=== PATIENT | female | born 1950 | race Caucasian/White ===

== ENCOUNTER 2024-10-21 09:39 | Observation (INO) ==
[2024-10-21] MEDS: SODIUM CHLORIDE 0.9% 500 ML IV SCH (10:25)
[2024-10-21] MEDS ORDERED: MoRPHine SULFATE 2 MG/ML CARP IV PRN ×2 (10:32→17:20)
--- NOTE | 2024-10-21 10:39 | Emergency Department Note ---
Impression & Plan Hypotension, Anemia, Right leg pain, Ambulatory dysfunction, Acute postoperative pain of right hip ED Provider Note NAME: REJI SPICER AGE: 73 SEX: F : 1950 ARRIVES VIA: Ambulance INFORMANT: [Patient][family] ED PROVIDER(S): [Jensen Sanders MD] CHIEF COMPLAINT: Leg pain HISTORY OF PRESENT ILLNESS: Patient is a 73-year-old female who presents to the ER with right leg pain. She states the pain is primarily in the hip and radiates down to the front of the knee. The patient had right hip surgery for calcific tendinitis 3 days ago at our hospital. The pain is unbearable despite narcotic pain medication at home. She could not get out of bed and had to urinate in her depends. She could not get out of bed even with the assistance of family this morning, EMS was called. There has been no fever, no cough or congestion. No fall. No abdominal pain. PMHx/PSHx/Social Hx: See Below PHYSICAL EXAM: GENERAL: Patient is in no acute distress. HEENT: No acute trauma, normocephalic atraumatic, mucous membranes moist, no nasal congestion. ABDOMEN: Soft, nontender, no peritonitis. EXTREMITIES: No cyanosis. The patient has a bandage across the right lateral hip, no seepage or erythema. She is tender about this area and there is some pain to palpate down along the right anterior thigh. No erythema. There is some mild edema to the right lower extremity. NEUROLOGIC: Oriented x 3, no acute motor or sensory deficits, no focal weakness. SKIN: No jaundice, no diaphoresis. DIFFERENTIAL DIAGNOSIS: Postop pain, hematoma, failed outpatient management, cellulitis, UTI, dehydration, among others. EMERGENCY DEPARTMENT PROCEDURES: MEDICAL DECISION MAKING: There is no leukocytosis. The patient does have a mild anemia with a hemoglobin of 10.6. There is a normal platelet count. No bandemia. No renal failure or significant electrolyte abnormality. No concerning liver enzyme elevation. ECG shows a sinus rhythm, no ischemia or dysrhythmia. Cardiac enzyme testing x 1 is not consistent with acute cardiac injury. Chest x-ray does not show pneumonia or CHF. Right leg ultrasound does not show DVT. On exam, the patient had significant discomfort in the area of the right upper leg especially with any movement. The surgical wound did not show any signs for erythema/infection. The patient received IV saline for hydration. She was given IV Toradol and IV morphine. The patient is not able to tolerate movement, she cannot walk, she cannot get out of bed. She will require a hospital stay, pain control and likely rehab. Of note, patient had presented hypotensive with a systolic pressure in the 90s. She received a small amount of IV fluid and the hypotension now seems to be resolved. The blood pressure can be watched/monitored during this hospital stay. I did speak with orthopedics. I did speak with the patient and family, I spoke with the casework specialist. The on-call hospitalist was consulted. Prior/Outside records/notes reviewed: Operative report from 10/18/2024 describing her procedure and operative findings. ECG per my interpretation: Indication was weakness. The ECG shows a normal sinus rhythm with some sinus arrhythmia. The rate is 83. There is no acute ST elevation, no PVCs. The QTc is 439. Continuous Cardiac Monitoring per my interpretation: An order was placed for continuous cardiac monitoring. The monitor shows a rate of 85 with normal sinus rhythm. Imaging/x-ray results per my interpretation: Chest x-ray does not show pneumonia or CHF. Chronic Medical/Social conditions affecting care: Advanced age, recent right hip operative procedure. Care/Management discussed with: Case management, the on-call hospitalist. Orthopedics-Dr. Elias. Level of care consideration(s): After review of the information above and other included data: --I believe the patient requires escalation of care to admission DISPOSITION: Admission Past Med/Surg History Problem List (Updated 10/21/24 @ 16:40 by Jensen Sanders MD) Acute postoperative pain of right hip (Acute) Ambulatory dysfunction (Acute) Right leg pain (Acute) Anemia (Acute) Hypotension (Acute) Gait difficulty History of operative procedure on hip Calcific tendinitis of hip Effusion, right knee Hypotension Right leg pain Osteoporosis Postmenopausal bleeding Anemia Atherosclerosis of aorta Coronary artery calcification Elevated lipoprotein(a) Rash and nonspecific skin eruption Statin intolerance Obesity (BMI 30-39.9) Vitamin D deficiency Carotid stenosis, bilateral Hypothyroidism Anxiety Hypercholesteremia Hypertension Asthma Medical History Nausea and vomiting after administration of anesthetic agent 2023, with Deborah sx in [place] History of hypothyroidism History of hypertension Hx of hypercholesterolemia History of anxiety History of anemia Hx of osteoporosis History of Mohs micrographic surgery for skin cancer Polymyalgia rheumatica Osteoarthritis Urinary incontinence Hiatal hernia IBS (irritable bowel syndrome) GERD (gastroesophageal reflux disease) hx History of skin cancer hx bcc Sleep apnea CPAP "on occasion" Asthma using PRN inh>rare use of inhaler, "unless she is sick" Surgical History Hx of left cataract extraction History of Deborah fundoplication 2023, [place] History of right cataract surgery 06/02/23 History of open reduction and internal fixation (ORIF) procedure LLE 1994 History of esophagogastroduodenoscopy (EGD) History of colonoscopy Status post surgical removal of neoplasm of skin History of left-sided carotid endarterectomy 2016 S/P tubal ligation 1974 Family History Mother Breast cancer, Onset Age: 70 Diabetes Hypertension Stroke 2003 Father Myocardial infarction 194 Anxiety Hypertension Heart disease Denies family history of Ovarian cancer Prostate cancer Social History Smoking Status: Former smoker Tobacco Type: Cigarettes Age Started Using Tobacco: 13; Age Quit Using Tobacco: 64; packs per day: 1; Second Hand Exposure: No; Do You Dip or Chew Tobacco: No; Hx Alcohol Use: Yes Hx Substance Use: No Preferred Language: Lithuanian Communication Ability: Effective 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 Required: No Beliefs That Will Affect Care: None marital status: Current Living Situation: Alone current occupational status: retired Feels Safe at Home: Yes Childhood Exposure to Second-Hand Smoke: No Dental Care, Regularly: Yes Physical Activity Frequency: Does not Exercise Seatbelt Use: always Sunscreen Use: Yes Assistive Devices: Denture - Upper, Denture - Lower and Glasses Allergies Allergies Allergy/AdvReac Type Severity Reaction Status Date / Time adhesive AdvReac Unknown Rash Verified 10/21/24 11:47 [id number] Reductase AdvReac Unknown elevated Verified 10/21/24 11:47 Inhibitor LFTs Home Meds Home Medications Medication Instructions Recorded Confirmed aspirin 81 mg tablet,delayed 81 mg PO QAM 12/02/21 10/21/24 release (Adult Aspirin Regimen) azelastine 137 mcg (0.1 %) nasal 1 spray intranasal BID PRN 12/02/21 10/21/24 spray Congestion cholecalciferol (vitamin D3) 125 125 mcg PO QAM 12/02/21 10/21/24 mcg (5,000 unit) capsule mecobalamin (vitamin B12) 1,000 1,000 mcg PO QAM 12/02/21 10/21/24 mcg chewable tablet multivitamin (Daily Multi-Vitamin 1 tab PO QAM 12/02/21 10/21/24 tablet) albuterol sulfate 2.5 mg/3 mL 2.5 mg inhalation Q4H PRN sob 05/12/22 10/21/24 (0.083 %) solution for nebulization montelukast 10 mg tablet 10 mg PO QPM 05/12/22 10/21/24 Lactobacillus rhamnosus GG 10 1 cap PO Q2D 10/09/24 10/21/24 billion cell capsule (Culturelle) ascorbic acid (vitamin C) 250 mg 250 mg PO QAM 10/09/24 10/21/24 tablet (Vitamin C) atenolol 25 mg tablet 12.5 mg PO QAM 10/09/24 10/21/24 ferrous sulfate 137 mg (45 mg 137 mg PO DAILY 10/09/24 10/21/24 iron) tablet,extended release (Slow Fe) fluticasone propionate 100 1 inh inhalation QAM 10/09/24 10/21/24 mcg/actuation blister powder for inhalation evolocumab 140 mg/mL subcutaneous 140 mg subcut Q14D 10/21/24 10/21/24 pen injector (Leif Hoover) fluticasone fur. 100 mcg-umeclid 1 inhalation DAILY 10/21/24 62.5 mcg-vilant 25 mcg inhalat.powder (Trelegy Ellipta) fluticasone fur. 100 mcg-umeclid inhalation 10/21/24 62.5 mcg-vilant 25 mcg inhalat.powder (Trelegy Ellipta) fluticasone fur. 100 mcg-umeclid inhalation 10/21/24 62.5 mcg-vilant 25 mcg inhalat.powder (Trelegy Ellipta) oxycodone 5 mg tablet 5 - 10 mg PO DIRECTED PRN pain 10/21/24 10/21/24 Previous Rx's Medication Instructions Recorded clotrimazole 1 % topical cream 1 applic topical BID PRN rash #30 11/11/22 grams ezetimibe 10 mg tablet 10 mg PO QAM #90 tabs 11/24/23 clobetasol 0.05 % topical cream 1 applic topical DAILY PRN lichen 12/16/23 sclerosus #60 grams telmisartan 20 mg tablet 10 mg (1/2 x 20 mg) PO HS #45 tabs 02/23/24 diclofenac sodium 1 % topical gel 2 g topical QID PRN Pain #100 grams 03/31/24 levothyroxine 50 mcg tablet 50 mcg PO QAM #90 tabs 04/27/24 (Euthyrox) citalopram 40 mg tablet 40 mg PO QAM #90 tabs 05/30/24 Results & Data (ED) Vital Signs Vital Signs - 24 hr 10/21/24 09:46 10/21/24 10:08 10/21/24 11:46 Temperature 37.1 C Temperature Source Oral Pulse Rate 88 85 Pulse Rate [Apical] 86 Pulse Rhythm Pulse Rhythm [Apical] Regular Pulse Strength [Apical] Normal Respiratory Rate 16 94 H Respiratory Effort / Characteristics Non-Labored Spontaneous Non-Labored Spontaneous Respiratory Depth Normal Normal Respiratory Pattern Regular Blood Pressure 95/56 L Blood Pressure [Right Arm] 113/65 Blood Pressure Mean 69 Blood Pressure Mean [Right Arm] 81 Blood Pressure Position Sitting Blood Pressure Position [Right Arm] Lying Pulse Oximetry 95 93 Oxygen Delivery Method Room Air Room Air Sepsis Recent Fever Within 48 Hours No Sepsis New/Unexplained Change in Mental Status N/A Sepsis Action Taken by Nursing No Action Required 10/21/24 11:48 10/21/24 13:00 10/21/24 15:09 Temperature Temperature Source Pulse Rate 87 85 Pulse Rate [Apical] 85 Pulse Rhythm Regular Pulse Rhythm [Apical] Regular Pulse Strength [Apical] Normal Respiratory Rate 26 H 21 Respiratory Effort / Characteristics Non-Labored Spontaneous Respiratory Depth Normal Respiratory Pattern Regular Blood Pressure Blood Pressure [Right Arm] 100/63 Blood Pressure Mean Blood Pressure Mean [Right Arm] 75 Blood Pressure Position Blood Pressure Position [Right Arm] Sitting Pulse Oximetry 93 94 Oxygen Delivery Method Room Air Room Air Sepsis Recent Fever Within 48 Hours Sepsis New/Unexplained Change in Mental Status Sepsis Action Taken by Nursing 10/21/24 15:43 Temperature Temperature Source Pulse Rate Pulse Rate [Apical] 91 H Pulse Rhythm Pulse Rhythm [Apical] Regular Pulse Strength [Apical] Normal Respiratory Rate 19 Respiratory Effort / Characteristics Non-Labored Spontaneous Respiratory Depth Normal Respiratory Pattern Regular Blood Pressure Blood Pressure [Right Arm] 124/67 Blood Pressure Mean Blood Pressure Mean [Right Arm] 86 Blood Pressure Position Blood Pressure Position [Right Arm] Lying Pulse Oximetry 96 Oxygen Delivery Method Room Air Sepsis Recent Fever Within 48 Hours Sepsis New/Unexplained Change in Mental Status Sepsis Action Taken by [facility] Medications Current Medication List: was personally reviewed by me Laboratory Data Attestation: I reviewed the patient's lab results. 10/21/24 10:25 10/21/24 10:25 Lab Results 10/21/24 10/21/24 Range/Units 10: 13:08 WBC 9.64 (4.8-10.8) K/ul RBC 3.52 L (4.20-5.40) M/uL Hgb 10.6 L (12.0-16.0) g/dl Hct 32.6 L (37.0-47.0) % MCV 92.6 (80.0-100.0) fL MCH 30.1 (25.0-34.0) pg MCHC 32.5 (32.0-36.0) g/dL RDW Std Deviation 51.8 H (36.4-46.3) fL RDW Coeff of Batsheva 15.5 H (11.5-14.5) % Plt Count 239 (130-400) K/uL MPV 10.5 (9.4-12.4) fL Immature Gran % (Auto) 0.4 % Neut % (Auto) 79.2 % Lymph % (Auto) 9.6 % Bath % (Auto) 9.4 % Eos % (Auto) 1.1 % Baso % (Auto) 0.3 % Neut # (Auto) 7.62 H (1.40-6.50) K/uL Lymph # (Auto) 0.93 L (1.20-3.40) K/uL Bath # (Auto) 0.91 H (0.11-0.59) K/uL Eos # (Auto) 0.11 (0.00-0.50) K/uL Baso # (Auto) 0.03 (0.00-0.20) K/uL Immature Gran # (Auto) 0.04 (0.01-0.20) K/uL Sodium 134 L (136-145) mmol/L Potassium 4.2 (3.5-5.1) mmol/L Chloride 101 (98-107) mmol/L Carbon Dioxide 28 (21-32) mmol/L Anion Gap 5 (3-11) BUN 21 (6-23) mg/dl Creatinine 0.84 (0.6-1.2) mg/dl Est Cr Clr Drug Dosing 68.3 ml/min eGFR 72.87 BUN/Creatinine Ratio 25.0 H (10-20) Glucose 105 H (70-99(Fasting)) mg/dl Calcium 8.5 L (8.6-10.3) mg/dl Magnesium 2.0 (1.7-2.4) mg/dl Total Bilirubin 0.6 (0.2-1.0) mg/dl AST 19 (13-39) U/L ALT 15 (7-52) U/L Alkaline Phosphatase 60 (34-104) U/L Troponin I High Sens 5.3 (0-14) pg/ml Total Protein 6.3 (6.0-8.3) gm/dl Albumin 3.2 L (3.4-5.0) gm/dl Globulin 3.1 (2.5-4.0) gm/dl Albumin/Globulin Ratio 1.0 (0.9-2) Fluid Comment Synovial Source Right Knee Synovial Color Yellow Synovial Appearance Cloudy Synovial WBC (Auto) 54265 H (0-200) /ul Synovial RBC (Auto) < 2000 /uL Synovial Polynuclear % 95.6 % Synovial Mononuclear % 4.4 % Administered Medications Discontinued Medications Sodium Chloride (Nss) 500 mls @ 999 mls/hr IV .Q31M LEO Stop: 10/21/24 10:45 Last Infusion: 10/21/24 11:01 Dose: Infused Documented By: Admin: 10/21/24 10:25 Dose: 999 mls/hr Documented By: JORDANN Ketorolac Tromethamine (Ketorolac Tromethamine 15 Mg/Ml Vial) 15 mg IV NOW STA Stop: 10/21/24 10:33 Last Admin: 10/21/24 10:47 Dose: 15 mg Documented By: MICHELLE Morphine Sulfate (Morphine Sulfate 2 Mg/Ml Carp) 2 mg IV NOW STA Stop: 10/21/24 10:33 Last Admin: 10/21/24 10:47 Dose: 2 mg Documented By: MICHELLE Morphine Sulfate (Morphine Sulfate 2 Mg/Ml Carp) 2 mg IV NOW STA Stop: 10/21/24 14:29 Last Admin: 10/21/24 14:35 Dose: 2 mg Documented By: MPD Imaging Data Radiologist's Impression: Venous Doppler Study 10/21/24 10:39 US venous doppler LE RT HISTORY: 73 years-old Female swelling acute pain and swelling of the lower legs COMPARISON: None TECHNIQUE: Multiple real-time sonographic images of the right lower extremity deep venous structures were obtained assessing grayscale appearance, color and spectral flow. FINDINGS: Normal flow, compressibility, phasicity and augmentation. IMPRESSION: No sonographic evidence of deep venous thrombosis. ACT 112: Negative or not required by law. The above report was generated using voice recognition software. It may contain grammatical, syntax or spelling errors. Electronically signed by: Jeff Kebede M.D. 10/21/2024 11:29 AM Chest X-Ray 10/21/24 14:41 HISTORY: Shortness of breath. TECHNIQUE: Portable AP radiograph of the chest. COMPARISON: None. 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 No focal lung consolidation. No pneumothorax or effusion. Top normal heart size. Left-sided aortic arch contains atherosclerotic calcification. Midline trachea. Degenerative changes of the shoulders and spine. Included upper abdomen is unremarkable. IMPRESSION: No acute cardiopulmonary findings. Electronically signed by Beto Armendariz 10-21-2024 3:03 PM Discharge Plan Visit Data Chief Complaint: Leg Injury/Pain ED Provider: Jensen Sanders Discharge Problem: Hypotension, Anemia, Right leg pain, Ambulatory dysfunction, Acute postoperative pain of right hip Patient Disposition: Admitted As Inpatient Condition: Fair Discharge Instructions Interventions: ED Discharge Assessment Last Done: 10/21/24 15:56 Forms Stand Alone Forms: My CDNlion Prescriptions Prescriptions: No Action ezetimibe 10 mg tablet 10 mg PO QAM Qty: 90 3RF telmisartan 20 mg tablet 10 mg PO HS Qty: 45 3RF Rx Instructions: 1/2 tab orally at bedtime; diclofenac sodium 1 % gel 2 g topical QID PRN (Reason: Pain) Qty: 100 2RF Rx Instructions: apply to hip QID PRN citalopram 40 mg tablet 40 mg PO QAM Qty: 90 3RF clotrimazole 1 % cream 1 applic topical BID PRN (Reason: rash) Qty: 30 0RF clobetasol 0.05 % cream 1 applic topical DAILY PRN (Reason: lichen sclerosus) Qty: 60 3RF multivitamin [Daily Multi-Vitamin] Tablet 1 tab PO QAM aspirin [Adult Aspirin Regimen] 81 mg tablet,delayed release (DR/EC) 81 mg PO QAM cholecalciferol (vitamin D3) 125 mcg (5,000 unit) capsule 125 mcg PO QAM mecobalamin (vitamin B12) 1,000 mcg tablet,chewable 1,000 mcg PO QAM azelastine 137 mcg (0.1 %) aerosol,spray 1 spray intranasal BID PRN (Reason: Congestion) Rx Instructions: administer into each nostril albuterol sulfate 2.5 mg /3 mL (0.083 %) solution for nebulization 2.5 mg inhalation Q4H PRN (Reason: sob) montelukast 10 mg tablet 10 mg PO QPM levothyroxine [Euthyrox] 50 mcg tablet 50 mcg PO QAM Qty: 90 3RF ascorbic acid (vitamin C) [Vitamin C] 250 mg Tablet 250 mg PO QAM Culturelle 10 billion cell Capsule 1 cap PO Q2D Slow Fe 137 mg (45 mg iron) Tablet Extended Release 137 mg PO DAILY atenolol 25 mg tablet 12.5 mg PO QAM fluticasone propionate 100 mcg/actuation blister with device 1 inh inhalation QAM Rx Instructions: Per pt report 06/2024 oxycodone 5 mg tablet 5 - 10 mg PO DIRECTED PRN (Reason: pain) Rx Instructions: take 1-2 tabs every 6-8 hours for pain as needed Repatha SureClick 140 mg/mL pen injector 140 mg subcut Q14D Trelegy Ellipta 100-62.5-25 mcg blister with device 1 INHALATION DAILY Trelegy Ellipta 100-62.5-25 mcg blister with device INHALATION Trelegy Ellipta 100-62.5-25 mcg blister with device INHALATION Referrals Referrals: Phuong Moore MD [Primary Care Provider] - Discharge Problem: Hypotension Qualifiers: Hypotension type: unspecified hypotension type Qualified Code(s): I95.9 - Hypotension, unspecified Anemia Qualifiers: Anemia type: unspecified type Qualified Code(s): D64.9 - Anemia, unspecified
[2024-10-21 10:42] LABS: Basophils # (auto) 0.03 K/uL (0.00-0.20); Basophils % (auto) 0.3 %; Eosinophils # (auto) 0.11 K/uL (0.00-0.50); Eosinophils % (auto) 1.1 %; Hematocrit (blood only) 32.6 % (37.0-47.0); Hemoglobin 10.6 g/dl (12.0-16.0); Immature Granulocytes # (auto) 0.04 K/uL (0.01-0.20); Immature Granulocytes % (auto) 0.4 %; Lymphocytes # (auto) 0.93 K/uL (1.20-3.40); Lymphocytes % (auto) 9.6 %; Mean Corpuscular Hemoglobin 30.1 pg (25.0-34.0); Mean Corpuscular Hgb Conc 32.5 g/dL (32.0-36.0); Mean Corpuscular Volume 92.6 fL (80.0-100.0); Mean Platelet Volume 10.5 fL (9.4-12.4); Monocytes # (auto) 0.91 K/uL (0.11-0.59); Monocytes % (auto) 9.4 %; Neutrophils # (auto) 7.62 K/uL (1.40-6.50); Neutrophils % (auto) 79.2 %; Platelet Count 239 K/uL (130-400); RDW Coefficient of Variation 15.5 % (11.5-14.5); RDW Standard Deviation 51.8 fL (36.4-46.3); Red Blood Count 3.52 M/uL (4.20-5.40); White Blood Count 9.64 K/ul (4.8-10.8)
[2024-10-21] MEDS: KETOROLAC TROMETHAMINE 15 MG/ML VIAL IV STA (10:47)
[2024-10-21] MEDS: MoRPHine SULFATE 2 MG/ML CARP IV STA ×2 (10:47→14:35)
[2024-10-21 11:10] LABS: Bilirubin,Total 0.6 mg/dl (0.2-1.0); Calcium 8.5 mg/dl (8.6-10.3); Creatinine Clr Calc Pharmacy 68.3 ml/min; Globulin 3.1 gm/dl (2.5-4.0); Potassium 4.2 mmol/L (3.5-5.1); Total Protein 6.3 gm/dl (6.0-8.3)
[2024-10-21 11:17] LABS: Troponin I High Sensitivity 5.3 pg/ml (0-14)
--- NOTE | 2024-10-21 11:31 | Ultrasound Report ---
US venous doppler LE RT HISTORY: 73 years-old Female swelling acute pain and swelling of the lower legs COMPARISON: None TECHNIQUE: Multiple real-time sonographic images of the right lower extremity deep venous structures were obtained assessing grayscale appearance, color and spectral flow. FINDINGS: Normal flow, compressibility, phasicity and augmentation. IMPRESSION: No sonographic evidence of deep venous thrombosis. ACT 112: Negative or not required by law. The above report was generated using voice recognition software. It may contain grammatical, syntax o r spelling errors. Electronically signed by: Jeff Kebede M.D. 10/21/2024 11:29 AM
--- NOTE | 2024-10-21 12:58 | History & Physical Report ---
Date of Service October 21, 2024 Assessment & Plan (1) Right leg pain: (2) Anemia: (3) Hypotension: (4) Atherosclerosis of aorta: (5) Hypertension: Plan 73 y/o with bilateral gluteus calcific tendinosis admitted with intractable pain and inability to ambulate following right gluteus minimus tendon repair 10/18 # Acute right knee pain with effusion suspicious for crystalline arthritis, seems unlikely to be septic knee since no fever/leukocytosis or warmth, erythema # postoperative right hip pain # sciatica flare with some component of the pain radiating all the way down to the foot -LE duplex negative for DVT -consulted ortho Dr. Elias - he performed arthrocentesis of the right knee. white blood count is 30,000 which is in the overlap range for crystalline arthritis versus septic arthritis, Gram stain is pending, crystal exam is pending -pain control - scheduled acetaminophen, as needed oxycodone and morphine IV, Toradol judiciously at low-dose to avoid kidney injuryscheduled 15 mg IV x 4 doses -PT/OT - she is supposed to be nonweightbearing on her right leg, clarify how long she is to be nonweightbearing # hypotension - on presentation to the ED mild and resolved with IV fluids, currently normotensive. Hold antihypertensives # postoperative anemia - fairly big drop since 10/16. exam does not seem suspicious for hematoma. recheck CBC - Hg adequate at 10.6. On iron supp outpatient. # Severe Persistent Asthma with ongoing cough purulent sputum since several weeks ago despite a few courses of steroids Z-Rikki and 5 days of doxycycline - obtain chest x-ray - portable film since she cannot stand currently, personally reviewed the film and it is clear without evidence of pneumonia or pulmonary edema - sputum culture - I do not think a procalcitonin will be helpful - may be elevated related to surgery and/or acute arthritis - not currently wheezing, continue formulary substitution for Trelegy and as needed albuterol - appears to be a persistent acute bronchitis or potentially a mild pneumonia, has some sinusitis symptoms - probably benefit from course of a broad spectrum antibiotic like Augmentin, will try to get sputum culture first # HTN - on olmesartan, atenolol - hold since hypotensive in ED # Athrosclerosis and JOSE L stenosis, L CEA - reviewed cardiology note 08/31 - ASA, cholesterol control # HLD - on repatha, zetia # PEGGY - noted, doesn't wear CPAP consistently # hypothyroid - cont levothyroxine, TSH normal this month # mood disorder - continue citalopram # osteoporosis - continue primary care follow up. On Ca/D and reclast # GERD - HH repair 2023 DVT ppx - enoxaparin History of Present Illness Chief Complaint: Right leg pain Primary Care Provider: Phuong Moore MD 73 y/o with calcific tendonitis discharged three days ago after tendon repair right gluteus minimus. She came in by EMS with severe right leg pain. she does have right hip/gluteus pain however that is not the prominent issue, rather, she has severe right knee pain. Pain does radiate from right hip down anterior thigh and all the way down her foote to her toes. She has some pain in her anterior ankle area. Pain is severe and not controlled by her oral pain medication. This morning unable to get OOB because of pain, even with help from family. 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 BP in 90s on arrival - improved after fluids. Anemia noted with adequate hemoglobin She is also been struggling with a cough that has been going on ever since school let out the first week in September. 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 it has been productive of yellow sputum. She has had chills and subjective fevers. She reports that she has had 2 courses of different antibiotics and courses of steroids. She recently saw her pro shop attendant who changed her inhalers to Trelegy. she does have asthma. She is a former smoker and she did recently have a screening chest CT which was negative for signs of malignancy. I reviewed the prescription database and on 10/04 she filled a Z-Rikki and methylprednisolone. on 10/11 she filled a 5-day course of doxycycline and prednisone 40 mg x 5 days. She says that she finished the prednisone 1 week ago Allergies Allergy/AdvReac Type Severity Reaction Status Date / Time adhesive AdvReac Unknown Rash Verified 10/21/24 11:47 [id number] Reductase AdvReac Unknown elevated Verified 10/21/24 11:47 Inhibitor LFTs Home Medications Medication Instructions Recorded Confirmed Type aspirin 81 mg tablet,delayed 81 mg PO QAM 12/02/21 10/21/24 History release (Adult Aspirin Regimen) azelastine 137 mcg (0.1 %) nasal 1 spray intranasal BID PRN 12/02/21 10/21/24 History spray Congestion cholecalciferol (vitamin D3) 125 125 mcg PO QAM 12/02/21 10/21/24 History mcg (5,000 unit) capsule mecobalamin (vitamin B12) 1,000 1,000 mcg PO QAM 12/02/21 10/21/24 History mcg chewable tablet multivitamin (Daily Multi-Vitamin 1 tab PO QAM 12/02/21 10/21/24 History tablet) albuterol sulfate 2.5 mg/3 mL 2.5 mg inhalation Q4H PRN sob 05/12/22 10/21/24 History (0.083 %) solution for nebulization montelukast 10 mg tablet 10 mg PO QPM 05/12/22 10/21/24 History clotrimazole 1 % topical cream 1 applic topical BID PRN rash #30 11/11/22 10/21/24 Rx grams ezetimibe 10 mg tablet 10 mg PO QAM #90 tabs 11/24/23 10/21/24 Rx clobetasol 0.05 % topical cream 1 applic topical DAILY PRN lichen 12/16/23 10/21/24 Rx sclerosus #60 grams telmisartan 20 mg tablet 10 mg (1/2 x 20 mg) PO HS #45 tabs 02/23/24 10/21/24 Rx diclofenac sodium 1 % topical gel 2 g topical QID PRN Pain #100 grams 03/31/24 10/21/24 Rx levothyroxine 50 mcg tablet 50 mcg PO QAM #90 tabs 04/27/24 10/21/24 Rx (Euthyrox) citalopram 40 mg tablet 40 mg PO QAM #90 tabs 05/30/24 10/21/24 Rx Lactobacillus rhamnosus GG 10 1 cap PO Q2D 10/09/24 10/21/24 History billion cell capsule (Culturelle) ascorbic acid (vitamin C) 250 mg 250 mg PO QAM 10/09/24 10/21/24 History tablet (Vitamin C) atenolol 25 mg tablet 12.5 mg PO QAM 10/09/24 10/21/24 History ferrous sulfate 137 mg (45 mg 137 mg PO DAILY 10/09/24 10/21/24 History iron) tablet,extended release (Slow Fe) fluticasone propionate 100 1 inh inhalation QAM 10/09/24 10/21/24 History mcg/actuation blister powder for inhalation evolocumab 140 mg/mL subcutaneous 140 mg subcut Q14D 10/21/24 10/21/24 History pen injector (Repatha SureClick) fluticasone fur. 100 mcg-umeclid 1 inhalation DAILY 10/21/24 History 62.5 mcg-vilant 25 mcg inhalat.powder (Trelegy Ellipta) fluticasone fur. 100 mcg-umeclid inhalation 10/21/24 History 62.5 mcg-vilant 25 mcg inhalat.powder (Trelegy Ellipta) fluticasone fur. 100 mcg-umeclid inhalation 10/21/24 History 62.5 mcg-vilant 25 mcg inhalat.powder (Trelegy Ellipta) oxycodone 5 mg tablet 5 - 10 mg PO DIRECTED PRN pain 10/21/24 10/21/24 History Past Med/Surg History Problem List Gait difficulty History of operative procedure on hip Calcific tendinitis of hip Effusion, right knee Hypotension Right leg pain Osteoporosis Postmenopausal bleeding Anemia Atherosclerosis of aorta Coronary artery calcification Elevated lipoprotein(a) Rash and nonspecific skin eruption Statin intolerance Obesity (BMI 30-39.9) Vitamin D deficiency Carotid stenosis, bilateral Hypothyroidism Anxiety Hypercholesteremia Hypertension Asthma Medical History Nausea and vomiting after administration of anesthetic agent 2023, with Deborah sx in [place] History of hypothyroidism History of hypertension Hx of hypercholesterolemia History of anxiety History of anemia Hx of osteoporosis History of Mohs micrographic surgery for skin cancer Polymyalgia rheumatica Osteoarthritis Urinary incontinence Hiatal hernia IBS (irritable bowel syndrome) GERD (gastroesophageal reflux disease) hx History of skin cancer hx bcc Sleep apnea CPAP "on occasion" Asthma using PRN inh>rare use of inhaler, "unless she is sick" Surgical History Hx of left cataract extraction History of Deborah fundoplication [address] [place] [address] History of right cataract surgery 06/02/23 History of open reduction and internal fixation (ORIF) procedure E 1994 History of esophagogastroduodenoscopy (EGD) History of colonoscopy Status post surgical removal of neoplasm of skin History of left-sided carotid endarterectomy 2017 S/P tubal ligation 1975 Family History Mother Breast cancer, Onset Age: 70 Diabetes Hypertension Stroke 2004 Father Myocardial infarction 1943 Anxiety Hypertension Heart disease Denies family history of Ovarian cancer Prostate cancer Social History Smoking Status: Former smoker Tobacco Type: Cigarettes Age Started Using Tobacco: 13; Age Quit Using Tobacco: 64; packs per day: 1; Second Hand Exposure: No; Do You Dip or Chew Tobacco: No; Hx Alcohol Use: Yes Hx Substance Use: No Preferred Language: Tunisian Communication Ability: Effective Developer Prover Mechanical Required: No Beliefs That Will Affect Care: None marital status: Current Living Situation: Alone current occupational status: retired Feels Safe at Home: Yes Childhood Exposure to Second-Hand Smoke: No Dental Care, Regularly: Yes Physical Activity Frequency: Does not Exercise Seatbelt Use: always Sunscreen Use: Yes Assistive Devices: Denture - Upper, Denture - Lower and Glasses Review of Systems 2 Review of Systems: All systems reviewed & are unremarkable except as noted in HPI & below Physical Exam 2 Physical Exam: Last 24h vitals reviewed GEN: no acute distress, sitting in bed HEENT: pupils equal, sclerae anicteric, moist MM RESP: normal WOB, CTAB Bilaterally except some coarse breath sounds, cough present CV: reg no mrg, no JVD ABD: soft/nt/nd +BT : no maier SKIN: warm and dry, she has a focal rash near the lower part of her blood pressure cuff and also bit on her left arm extremities: Right hip incision is clean dressed no erythema or swelling, no significant ecchymosis. Right knee is tender to palpation and minimal range of motion, not warm and no erythema, knee effusion is present. NEURO: AOx person, place, and situation. Face symmetric, speech normal, moves 4 ext spontaneously and equally. Cannot really move right leg at the hip or the knee hampered by pain she does have some degree of dorsi flexion and plantar flexion intact also hampered by pain Results & Data Results & Data Vital Signs (Past 12 Hours) Vital Signs Temp Pulse Pulse Resp BP BP Pulse Ox 10/21/24 11:48 87 26 H 93 10/21/24 11:46 86 94 H 113/65 93 10/21/24 10:08 85 10/21/24 09:46 37.1 C 88 16 95/56 L 95 O2 Del Method 10/21/24 11:48 Room Air 10/21/24 11:46 Room Air 10/21/24 10:08 10/21/24 09:46 Room Air Laboratory Results 10/21/24 10:25 10/21/24 10:25 last labs 10/16 WBC 15-->9 Hg 12-->10.6 Plt normal Cr at baseline - baseline GFR 65-70 Albumin 3.2 Diagnostic Findings LE duplex negative for DVT MRI Lspine 09/08/24 reviewed DDD and mild-mod facet arthrosis. L4-5 moderate LSS. No high-grade foraminal or central canal stenosis Hip MRI 07/25 reviewed RIGHT 1. Right gluteal tendinosis with insertional edema adjacent to the greater trochanter of the right femur. High-grade partial-thickness tear of the gluteus minimus. Intact insertion of gluteus medius. 2. Mild degenerative changes within the right hip. 3. No fractures. No suspicious marrow replacement. LEFT 1. Left gluteal tendinosis with insertional edema adjacent to the greater trochanter of the left femur. Moderate to high-grade partial-thickness tear of the left gluteus minimus. Intact insertion of the left gluteus medius. 2. Mild degenerative changes within the left hip. 3. No fractures. No suspicious marrow replacement. ECG Additional Comments: Personally reviewed EKG tracing - normal EKG PG Care Time/CCT Total # of Minutes Spent Total Time Spent with Patient: Total time spent is greater than 50% in coordination of care (as documented) at patient's floor/unit and/or counseling patient: Coding Level of Care Code 46740 INT INP/OBS CARE 3/75MIN Diagnoses Right leg pain M79.604 Anemia D64.9 Hypotension I95.9 Atherosclerosis of aorta I70.0 Primary hypertension I10 Hypertension type: primary hypertension (5) Hypertension Hypertension type: primary hypertension Qualified Code(s): I10 - Essential (primary) hypertension
--- NOTE | 2024-10-21 13:16 | Orthopedic Consultation ---
Date of Service October 21, 2024 Assessment & Plan (1) Effusion, right knee: (2) Calcific tendinitis of hip: (3) History of operative procedure on hip: (4) Gait difficulty: Plan 72-year-old female admitted with essentially ambulatory dysfunction following a calcific tendinitis percutaneous procedure of the hip 3 days ago. It appears that most the pain is related to a knee that shows a significant effusion. This may be unrelated to the procedure altogether. Either way, she will need some assistance with activities of daily living and nursing care to help her. - Agree with the ER assessment of need for admission for failure of self-care - Focus on pain management. Opioids okay. No issues with NSAIDs such as Toradol at this point for the tenotomy procedure. - The knee effusion was aspirated: Followed the cell counts and cultures. May benefit from corticosteroid treatment with oral taper. Low concern for infection. Her son-in-law is a publishing editor. - PT/OT evaluations for mobilization and disposition. Weightbearing and range of motion as tolerated. - Will continue to follow her progress. History of Present Illness Reason for Consultation: Right hip and knee pain Requesting Physician: . 73-year-old female was treated by Dr. Diony Brito for right hip calcific tendinitis with a percutaneous tenotomy type procedure presents with increasing pain in the extremity but more focused at the knee versus the hip. Since the procedure she has had a lot of pain that she managed with opioid at home. She has been difficult to mobilize over the last 2 days. Her family called and ambulance as she cannot get out of bed. Her son-in-law is a local publishing editor and provided additional history. She had at the inflammatory ankle condition that self resolved a while ago. No known history of crystalline arthropathy. Knee has been swollen and painful for the past day or so. Pes been increasingly painful and she has had difficulty with ambulation because of mostly the knee pain. The hip discomfort has gotten better since the procedure. Allergies Allergy/AdvReac Type Severity Reaction Status Date / Time adhesive AdvReac Unknown Rash Verified 10/21/24 11:47 [id number] Reductase AdvReac Unknown elevated Verified 10/21/24 11:47 Inhibitor LFTs Home Medications Medication Instructions Recorded Confirmed Type aspirin 81 mg tablet,delayed 81 mg PO QAM 12/02/21 10/21/24 History release (Adult Aspirin Regimen) azelastine 137 mcg (0.1 %) nasal 1 spray intranasal BID PRN 12/02/21 10/21/24 History spray Congestion cholecalciferol (vitamin D3) 125 125 mcg PO QAM 12/02/21 10/21/24 History mcg (5,000 unit) capsule mecobalamin (vitamin B12) 1,000 1,000 mcg PO QAM 12/02/21 10/21/24 History mcg chewable tablet multivitamin (Daily Multi-Vitamin 1 tab PO QAM 12/02/21 10/21/24 History tablet) albuterol sulfate 2.5 mg/3 mL 2.5 mg inhalation Q4H PRN sob 05/12/22 10/21/24 History (0.083 %) solution for nebulization montelukast 10 mg tablet 10 mg PO QPM 05/12/22 10/21/24 History clotrimazole 1 % topical cream 1 applic topical BID PRN rash #30 11/11/22 10/21/24 Rx grams ezetimibe 10 mg tablet 10 mg PO QAM #90 tabs 11/24/23 10/21/24 Rx clobetasol 0.05 % topical cream 1 applic topical DAILY PRN lichen 12/16/23 10/21/24 Rx sclerosus #60 grams telmisartan 20 mg tablet 10 mg (1/2 x 20 mg) PO HS #45 tabs 02/23/24 10/21/24 Rx diclofenac sodium 1 % topical gel 2 g topical QID PRN Pain #100 grams 03/31/24 10/21/24 Rx levothyroxine 50 mcg tablet 50 mcg PO QAM #90 tabs 04/27/24 10/21/24 Rx (Euthyrox) citalopram 40 mg tablet 40 mg PO QAM #90 tabs 05/30/24 10/21/24 Rx Lactobacillus rhamnosus GG 10 1 cap PO Q2D 10/09/24 10/21/24 History billion cell capsule (Culturelle) ascorbic acid (vitamin C) 250 mg 250 mg PO QAM 10/09/24 10/21/24 History tablet (Vitamin C) atenolol 25 mg tablet 12.5 mg PO QAM 10/09/24 10/21/24 History ferrous sulfate 137 mg (45 mg 137 mg PO DAILY 10/09/24 10/21/24 History iron) tablet,extended release (Slow Fe) fluticasone propionate 100 1 inh inhalation QAM 10/09/24 10/21/24 History mcg/actuation blister powder for inhalation evolocumab 140 mg/mL subcutaneous 140 mg subcut Q14D 10/21/24 10/21/24 History pen injector (Leif Hoover) oxycodone 5 mg tablet 5 - 10 mg PO DIRECTED PRN pain 10/21/24 10/21/24 History Past Med/Surg History Problem List (Updated 10/21/24 @ 13:19 by Brannon Elias MD) Gait difficulty History of operative procedure on hip Calcific tendinitis of hip Effusion, right knee Hypotension Right leg pain Osteoporosis Postmenopausal bleeding Anemia Atherosclerosis of aorta Coronary artery calcification Elevated lipoprotein(a) Rash and nonspecific skin eruption Statin intolerance Obesity (BMI 30-39.9) Vitamin D deficiency Carotid stenosis, bilateral Hypothyroidism Anxiety Hypercholesteremia Hypertension Asthma Medical History Nausea and vomiting after administration of anesthetic agent 2023, with Deborah sx in [place] History of hypothyroidism History of hypertension Hx of hypercholesterolemia History of anxiety History of anemia Hx of osteoporosis History of Mohs micrographic surgery for skin cancer Polymyalgia rheumatica Osteoarthritis Urinary incontinence Hiatal hernia IBS (irritable bowel syndrome) GERD (gastroesophageal reflux disease) hx History of skin cancer hx bcc Sleep apnea CPAP "on occasion" Asthma using PRN inh>rare use of inhaler, "unless she is sick" Surgical History Hx of left cataract extraction History of Deborah fundoplication 2023, [place] History of right cataract surgery 06/02/23 History of open reduction and internal fixation (ORIF) procedure [place] 1994 History of esophagogastroduodenoscopy (EGD) History of colonoscopy Status post surgical removal of neoplasm of skin History of left-sided carotid endarterectomy 2016 S/P tubal ligation 1974 Family History Mother Breast cancer, Onset Age: 70 Diabetes Hypertension Stroke 2004 Father Myocardial infarction 194 Anxiety Hypertension Heart disease Denies family history of Ovarian cancer Prostate cancer Social History Smoking Status: Former smoker Tobacco Type: Cigarettes Age Started Using Tobacco: 13; Age Quit Using Tobacco: 64; packs per day: 1; Second Hand Exposure: No; Do You Dip or Chew Tobacco: No; Hx Alcohol Use: Yes Hx Substance Use: No Preferred Language: Djiboutian Communication Ability: Effective Carrier Packer Required: No Beliefs That Will Affect Care: None marital status: Current Living Situation: Alone current occupational status: retired Feels Safe at Home: Yes Childhood Exposure to Second-Hand Smoke: No Dental Care, Regularly: Yes Physical Activity Frequency: Does not Exercise Seatbelt Use: always Sunscreen Use: Yes Assistive Devices: Denture - Upper, Denture - Lower and Glasses Review of Systems All systems reviewed & are unremarkable except as noted in HPI & below. Physical Exam Right hip: The percutaneous tenotomy site is without erythema or drainage. No guarding or significant tenderness with palpation. No issues with logroll or activating the quad. Right knee: The right knee is irritable and has an obvious effusion. No erythema or significant warmth. Can actively extend gently but prefers to be slightly flexed. DNVI Constitutional WD/WN, vitals as above no acute distress and not intoxicated appearing Respiratory normal respiratory effort; no labored breathing Cardiovascular Extremities: normal capillary refill Results & Data Results & Data Laboratory Results H & H 10/21/24 Range/Units 10:25 Hgb 10.6 L (12.0-16.0) g/dl Hct 32.6 L (37.0-47.0) % Laboratory Tests 10/16/24 10/16/24 10/16/24 08:46 08:46 08:46 WBC 15.35 H Neut % (Auto) 63.7 Neut # (Auto) 9.77 H Creatinine Albumin 10/21/24 10/21/24 10/21/24 10:25 10:25 10:25 WBC 9.64 Neut % (Auto) 79.2 Neut # (Auto) 7.62 H Creatinine 0.84 Albumin 3.2 L Diagnostic Findings Venous Doppler shows no evidence of VTE PG Care Time/CCT Total # of Minutes Spent Total Time Spent with Patient: Total time spent is greater than 50% in coordination of care (as documented) at patient's floor/unit and/or counseling patient: Coding Level of Care Code 90349 IN/OBS CONSULT LVL 4,60M Diagnoses Effusion, right knee M25.461 Calcific tendinitis of hip M65.259 History of operative procedure on hip Z98.890 Gait difficulty R26.9
[2024-10-21 13:49] LABS: Appearance Synovial Fluid Cloudy; Color Synovial Fluid Yellow; Mononuclear WBC Synovial 4.4 %; Polynuclear WBC Synovial 95.6 %; RBC Synovial Fluid Auto < 2000 /uL; Source Synovial Fluid Right Knee
--- NOTE | 2024-10-21 15:03 | XRay Report ---
HISTORY: Shortness of breath. TECHNIQUE: Portable AP radiograph of the chest. COMPARISON: None. FINDINGS: personnel monitor leads overlie the chest. No focal lung consolidation. No pneumothorax or effusion. Top normal heart size. Left-sided aortic arch contains atherosclerotic calcification. Midline trachea. Degenerative changes of the shoulders and spine. Included upper abdomen is unremarkable. IMPRESSION: No acute cardiopulmonary findings. Electronically signed by Beto Armendariz 10-21-2024 3:03 PM
[2024-10-21 16:47] LABS: Uric Acid 5.6 mg/dl (2.6-7.2)
[2024-10-21] MEDS ORDERED: CLOBETASOL PROPIONATE 0.05% CREAM 15 GM TUBE TOP PRN (17:20)
[2024-10-21] MEDS ORDERED: DICLOFENAC SOD 1% GEL 100 GM TUBE EXT PRN (17:20)
[2024-10-21] MEDS ORDERED: ALBUTEROL 0.083% NEBU SOLN 3 ML VIAL INH PRN (17:20)
[2024-10-21] MEDS ORDERED: AZELASTINE HCL 0.1% NASAL 200 SPRAYS/27,400 MCG BTL NAE PRN (17:20)
[2024-10-21] MEDS ORDERED: MAGNESIUM HYDROXIDE SUSP 30 ML UDC PO PRN (17:20)
[2024-10-21] MEDS ORDERED: oxyCODONE HCL IR 5 MG TAB (IMMEDIATE RELEASE) PO PRN ×2 (17:20)
[2024-10-21] MEDS ORDERED: ONDANSETRON INJ 2 MG/ML 2 ML VIAL IV PRN (17:20)
[2024-10-21] MEDS ORDERED: MELATONIN 3 MG TAB PO PRN (17:20)
[2024-10-21] MEDS ORDERED: ALUMINUM/MAGNESIUM SUSP 30 ML UDC PO PRN (17:20)
[2024-10-21] MEDS ORDERED: bisacodyL 10 MG SUPP PR PRN (17:20)
[2024-10-21] MEDS ORDERED: bisacodyL 5 MG TABEC PO PRN (17:20)
[2024-10-21] MEDS ORDERED: KETOROLAC TROMETHAMINE 15 MG/ML VIAL IV PRN (17:20)
[2024-10-21] MEDS ORDERED: CLOTRIMAZOLE 1% CR 15 GM TUBE TOP PRN (17:20)
[2024-10-21] MEDS: AMOXICILLIN/CLAVULANATE 875 MG TAB PO SCH (18:36)
[2024-10-21] MEDS: ACETAMINOPHEN 325 MG TAB PO SCH (18:37)
--- NOTE | 2024-10-21 18:45 | Electrocardiogram Report ---
Test Reason : Blood Pressure : */* mmHG Vent. Rate : 83 BPM Atrial Rate : 83 BPM P-R Int : 164 ms QRS Dur : 70 ms QT Int : 374 ms P-R-T Axes : 61 15 16 degrees QTcB Int : 439 ms Normal sinus rhythm with sinus arrhythmia Normal ECG No previous ECGs available Confirmed by Saagr Oconnor ([id number]) on 10/21/2024 6:45:03 PM Referred By: REFERRED SELF Confirmed By: Sagar Oconnor
[2024-10-21] MEDS: MONTELUKAST SODIUM 10 MG TABLET PO SCH (20:22)
[2024-10-21] MEDS: HEPARIN SOD 5,000 UNIT/0.5 ML VIAL SQ SCH (20:25)
[2024-10-21] MEDS: SENNA 8.6 MG TAB PO SCH (20:25)
[2024-10-22] MEDS: LEVOTHYROXINE SODIUM 50 MCG TABLET PO SCH (05:29)
[2024-10-22 07:49] LABS: Hemoglobin 10.4 g/dl (12.0-16.0); Mean Corpuscular Hemoglobin 30.9 pg (25.0-34.0); Mean Corpuscular Hgb Conc 33.5 g/dL (32.0-36.0); Mean Platelet Volume 10.4 fL (9.4-12.4); Platelet Count 228 K/uL (130-400); RDW Coefficient of Variation 15.2 % (11.5-14.5); RDW Standard Deviation 51.5 fL (36.4-46.3); Red Blood Count 3.37 M/uL (4.20-5.40); White Blood Count 6.33 K/ul (4.8-10.8)
[2024-10-22] MEDS: UMECLIDINIUM/VILANTEROL 62.5/25MCG 7 PUFFS/INHALER INH SCH (09:09)
[2024-10-22] MEDS: FLUTICASONE FUROATE 100MCG 14 PUFFS/INHALER INH SCH (09:09)
[2024-10-22] MEDS: ASPIRIN 81 MG ECTAB PO SCH (09:10)
[2024-10-22] MEDS: CYANOCOBALAMIN (B-12) 500 MCG TABLET PO SCH (09:10)
[2024-10-22] MEDS: EZETIMIBE 10 MG TAB PO SCH (09:11)
[2024-10-22] MEDS: CITALOPRAM 40 MG TAB PO SCH (09:11)
[2024-10-22] MEDS: POLYETHYLENE (MIRALAX) 17 GM PACK PO SCH (09:22)
--- NOTE | 2024-10-22 14:28 | Orthopedic Progress Note ---
Date of Service October 22, 2024 Assessment & Plan (1) Ambulatory dysfunction: (2) Effusion, right knee: (3) Calcific tendinitis of hip: (4) History of operative procedure on hip: (5) Gait difficulty: Plan Continue to follow culture results and synovial fluid analysis. Currently, no growth is seen on culture. Crystal analysis is pending. Again, the patient may benefit from oral corticosteroid taper. Patient remains a low concern for infection. - Continue PT/OT for mobilization. Currently, patient may be either returning to her home or her daughter's home, but may also be a candidate for an inpatient rehab facility. - Weightbearing and range of motion as tolerated. - Will continue to follow her progress. Subjective Patient is HD# 2 since undergoing a right knee aspiration yesterday by Dr. Elias, which did demonstrate an opaque/cloudy yellow fluid. It ended up showing approximately 32,000 WBCs. Crystal analysis is still pending. Patient says her pain is much better today, and she is able to flex and extend the knee and ankle, whereas she was unable to do this yesterday secondary to severe pain. Review of Systems All systems reviewed & are unremarkable except as noted in HPI & below. Physical Exam GENERAL: AA&Ox3, NAD. Pleasant, affect is calm. Sitting in bedside chair and appears comfortable. RESPIRATORY: Normal respiratory effort with no signs of distress. CHEST/AXILLA: Chest movement symmetrical. No deformities noted. CARDIOVASCULAR: No edema noted. SKIN: [place], warm and dry. MS/EXTREMITY: Right knee is without any significant effusion today. No erythema or abnormal warmth. + Knee flexion/extension. + ankle dorsi/plantarflexion. NVI distally. Calf soft/NT. PT/DP pulses intact, 2+. Results & Data Results & Data Laboratory Results Laboratory Results - last 48 hr 10/21/24 10/21/24 10/22/24 10:25 13:08 07:32 WBC 9.64 6.33 RBC 3.52 L 3.37 L Hgb 10.6 L 10.4 L Hct 32.6 L 31.0 L MCV 92.6 92.0 MCH 30.1 30.9 MCHC 32.5 33.5 RDW Std Deviation 51.8 H 51.5 H RDW Coeff of Batsheva 15.5 H 15.2 H Plt Count 239 228 MPV 10.5 10.4 Immature Gran % (Auto) 0.4 Neut % (Auto) 79.2 Lymph % (Auto) 9.6 Johnson % (Auto) 9.4 Eos % (Auto) 1.1 Baso % (Auto) 0.3 Neut # (Auto) 7.62 H Lymph # (Auto) 0.93 L Johnson # (Auto) 0.91 H Eos # (Auto) 0.11 Baso # (Auto) 0.03 Immature Gran # (Auto) 0.04 Sodium 134 L Potassium 4.2 Chloride 101 Carbon Dioxide 28 Anion Gap 5 BUN 21 Creatinine 0.84 Est Cr Clr Drug Dosing 68.3 eGFR 72.87 BUN/Creatinine Ratio 25.0 H Glucose 105 H Uric Acid 5.6 Calcium 8.5 L Magnesium 2.0 Total Bilirubin 0.6 AST 19 ALT 15 Alkaline Phosphatase 60 Troponin I High Sens 5.3 Total Protein 6.3 Albumin 3.2 L Globulin 3.1 Albumin/Globulin Ratio 1.0 Fluid Comment Synovial Source Right Knee Synovial Color Yellow Synovial Appearance Cloudy Synovial WBC (Auto) 41822 H Synovial RBC (Auto) < 2000 Synovial Polynuclear % 95.6 Synovial Mononuclear % 4.4 Synovial crystalspending Diagnostic Findings . PG Care Time/CCT Total # of Minutes Spent Total Time Spent with Patient: Total time spent is greater than 50% in coordination of care (as documented) at patient's floor/unit and/or counseling patient: Coding [place] [address] Post Operative Follow-Up Patient Type Established History Problem Focused Exam Problem Focused Medical Decision Making Straight Forward Diagnoses Ambulatory dysfunction R26.2 Effusion, right knee M25.461 Calcific tendinitis of hip M65.259 History of operative procedure on hip Z98.890 Gait difficulty R26.9
[2024-10-22] MEDS: COLCHICINE 0.6 MG TAB PO ONE ×2 (16:40→17:56)
[2024-10-22] MEDS: CEFEPIME 2000MG 2,000 MG/20 ML SYR IV SCH (17:36)
--- NOTE | 2024-10-22 18:03 | Hospitalist Progress Note ---
Date of Service October 22, 2024 Assessment & Plan (1) Right leg pain: (2) Anemia: (3) Hypotension: (4) Atherosclerosis of aorta: (5) Hypertension: Plan 73 y/o with bilateral gluteus calcific tendinosis admitted with intractable pain and inability to ambulate following right gluteus minimus tendon repair 10/18 # Acute right knee pain with effusion suspicious for crystalline arthritis, seems unlikely to be septic knee since no fever/leukocytosis or warmth, erythema # postoperative right hip pain # sciatica flare with some component of the pain radiating all the way down to the foot -LE duplex negative for DVT -consulted ortho Dr. Elias - he performed arthrocentesis of the right knee. white blood count is 30,000 which is in the overlap range for crystalline arthritis versus septic arthritis, Gram stain is neg, crystal exam is pending -pain control - scheduled acetaminophen, as needed oxycodone, lost IV and doesn't want another one -colchicine 1.2 mg x 1 and 0.6 mg an hour later for probably crystalline arthritis. Would like to avoid a third course of systemic steroids within less than a month if possible. Joint injection would be helpful -PT/OT - she is supposed to be nonweightbearing on her right leg, clarify how long she is to be nonweightbearing # hypotension - on presentation to the ED mild and resolved with IV fluids, remains normotensive. Hold antihypertensives # postoperative anemia - fairly big drop since 10/16. exam does not seem suspicious for hematoma. recheck CBC - Hg unchanged today - Hg adequate at 10.4. On iron supp outpatient. # Severe Persistent Asthma with ongoing cough purulent sputum since several weeks ago despite a few courses of steroids Z-Rikki and 5 days of doxycycline # pseudomonas pneumonia, mild but persistent for weeks, versus acute bronchitis - chest x-ray - clear - sputum culture - Pseudomonas aureginosa - stop augmentin and start cefepime, hope to change to cipro once sensis available - not currently wheezing, continue formulary substitution for Trelegy and as needed albuterol # HTN - on olmesartan, atenolol - held since hypotensive in ED # Athrosclerosis and JOSE L stenosis, L CEA - reviewed cardiology note 08/31 - ASA, cholesterol control # HLD - on repatha, zetia # PEGGY - noted, doesn't wear CPAP consistently # hypothyroid - cont levothyroxine, TSH normal this month # mood disorder - continue citalopram # osteoporosis - continue primary care follow up. On Ca/D and reclast # GERD - HH repair 2023 DVT ppx - enoxaparin Admission and Anticipated Discharge Date Admission Date: October 21, 2024 Subjective R knee pain down from 20/10 to an 8/10 today Cough persists, not hypoxic no fever Able to stand and transfer to chair Physical Exam 2 Physical Exam: Last 24h vitals reviewed GEN: up in chair HEENT: pupils equal, sclerae anicteric, moist MM RESP: normal WOB, cough CV: ABD: ND : no maier SKIN: warm and dry, no rash EXT: R knee with effuison, no warmth or erythema NEURO: AOx person, place, and situation. Results & Data Results & Data Vital Signs (Past 12 Hours) Vital Signs Temp Pulse Resp BP Pulse Ox O2 Del Method 10/22/24 13:39 36.9 C 84 16 115/69 97 Room Air 10/22/24 07:40 Room Air 10/22/24 07:27 36.6 C 75 16 144/83 H 99 Room Air Laboratory Results 10/22/24 07:32 10/21/24 10:25 PG Care Time/CCT Total # of Minutes Spent Total Time Spent with Patient: Total time spent is greater than 50% in coordination of care (as documented) at patient's floor/unit and/or counseling patient: Coding Level of Care Code 21968 SUB INP/OBS CARE 2/35MIN Diagnoses Right leg pain M79.604 Anemia D64.9 Hypotension I95.9 Atherosclerosis of aorta I70.0 Primary hypertension I10 Hypertension type: primary hypertension (5) Hypertension Hypertension type: primary hypertension Qualified Code(s): I10 - Essential (primary) hypertension
[2024-10-23 06:46] LABS: Hematocrit (blood only) 31.9 % (37.0-47.0); Hemoglobin 10.8 g/dl (12.0-16.0); Mean Corpuscular Hemoglobin 30.5 pg (25.0-34.0); Mean Corpuscular Hgb Conc 33.9 g/dL (32.0-36.0); Mean Corpuscular Volume 90.1 fL (80.0-100.0); Mean Platelet Volume 10.4 fL (9.4-12.4); Platelet Count 269 K/uL (130-400); RDW Coefficient of Variation 14.6 % (11.5-14.5); RDW Standard Deviation 47.8 fL (36.4-46.3); Red Blood Count 3.54 M/uL (4.20-5.40); White Blood Count 5.64 K/ul (4.8-10.8)
[2024-10-23 07:00] VITALS: BP 132/76; PULSE 93; RESP 16; TEMP 98.8; O2SAT 98
[2024-10-23 07:11] LABS: BUN Creatinine Ratio 17.1 (10-20); Calcium 8.5 mg/dl (8.6-10.3)
--- NOTE | 2024-10-23 09:40 | Orthopedic Progress Note ---
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 * Culture/GS negative, Crystal analysis (+) CPPD crystals * Recommend medical management of pseudogout. Consider ice, NSAIDs/Colchicine as able, steroid taper. * Disposition: TBD * Daily treatment: Physical Therapy/ Occupational Therapy per protocol * Weight bearing status: WBAT * Pain control * DVT prophylaxis per primary team * Remainder care per primary team * Will follow peripherally, recommend outpt follow-up as needed. Subjective .Active Problems: Right knee pain/effusion, s/p aspiration 10/21 73 y/o female s/p R knee aspiration. Synovial analysis WBC 32k, gram stain (-), culture (-), (+) CPPD crystals. Knee pain continues to improve but is still moderately painful with motion. Colchicine initiated yesterday. Improved function, can now flex knee past 90 degrees. Denies fever/chills, chest pain/SOB, nausea/vomiting. Otherwise no complaints. Review of Systems All systems reviewed & are unremarkable except as noted in HPI & below. Physical Exam . * General: Alert and oriented, no acute distress * Constitutional: well-developed, well-nourished. * Respiratory: Normal respiratory effort, no distress * Gastrointestinal: No tenderness to palpation, no rigidity or guarding. * Skin: No rash or lesion. * Neurologic: Grossly normal * Musculoskeletal: R knee with mild effusion. Otherwise no overlying erythema, open wounds. Mild TTP medial/lateral joint line. Otherwise no tenderness distal thigh, lower leg, foot/ankle. AROM knee flexion 0-100 degrees with minimal end range pain. AROM foot/ankle intact. Sensation intact plantar/dorsal foot. Brisk capillary refill. Results & Data Results & Data Laboratory Results . 10/21/24 16:00 Gram Stain - Final Sputum, Expectorated Sputum Culture - Final Pseudomonas aeruginosa 10/21/24 13:08 Gram Stain - Final Knee,Right Aerobic and Anaerobic Culture - Preliminary No growth to date. 10/23/24 06:13 WBC 5.64 RBC 3.54 L Hgb 10.8 L Hct 31.9 L MCV 90.1 MCH 30.5 MCHC 33.9 RDW Std Deviation 47.8 H RDW Coeff of Batsheva 14.6 H Plt Count 269 MPV 10.4 Sodium 139 Potassium 4.0 Chloride 107 Carbon Dioxide 28 Anion Gap 4 BUN 12 Creatinine 0.70 Est Cr Clr Drug Dosing 82.0 eGFR 90.70 BUN/Creatinine Ratio 17.1 Glucose 103 H Calcium 8.5 L Diagnostic Findings . PG Care Time/CCT Total # of Minutes Spent Total Time Spent with Patient: Total time spent is greater than 50% in coordination of care (as documented) at patient's floor/unit and/or counseling patient: Coding Level of Care Code 72634 SUB INP/OBS CARE 05/20MIN Diagnoses Effusion, right knee M25.461
[2024-10-23] MEDS: ONDANSETRON 4 MG OD TAB PO PRN (10:54)
[2024-10-23] MEDS ORDERED: NAPROXEN 250 MG TAB PO PRN (12:22)
--- NOTE | 2024-10-23 12:37 | Discharge Summary ---
Discharge Summary Date of Service October 23, 2024 Principal Dx & Hospital Course #1 = Principal Diagnosis (1) Pseudogout of knee: (2) Acute postoperative pain of right hip: (3) Anemia: (4) Hypotension: (5) Atherosclerosis of aorta: (6) Hypertension: Plan 73 y/o with bilateral gluteus calcific tendinosis admitted with intractable right leg pain and inability to ambulate following right gluteus minimus tendon repair 10/18. The main painful area was actually her right knee, not the hip/gluteal repair and she had right knee effusion. Knee was tapped and positive for CPPD. Treated as below and improved. # acute pseudogout of right knee # postoperative right hip pain -LE duplex negative for DVT -consulted ortho Dr. Elias - he performed arthrocentesis of the right knee. white blood count is 30,000, Gram stain is neg, joint culture negative, crystal exam resulted after discharge - positive for CPPD crystals. Serum uric acid was low. Has prior history of R ankle acute inflammatory arthritis that resolved with prednisone. -pain control - scheduled acetaminophen, as needed oxycodone -treated with nsaids, colchicine 1.2 mg x 1 and 0.6 mg given 10/22 with im provement. Continuing colchicine 0.6 mg bid and PRN naproxen (caution with renal function) at this time. If ineffective can use prednisone. Would like to avoid a third course of systemic steroids within less than a month if possible. Joint injection would be helpful, but ortho renewable energy consultant did not offer this -PT/OT - clarified with Dr. Dominguez who did gluteus tendon surgery - at this time partial weightbearing on right LE. # postoperative anemia - fairly big drop since 10/16. exam does not seem suspicious for hematoma. recheck CBC - Hg unchanged today - Hg adequate at 10.8 On iron supp outpatient q2d, follow up in primary care # Severe Persistent Asthma with ongoing cough purulent sputum since several weeks ago despite a few courses of steroids Z-Rikki and 5 days of doxycycline # pseudomonas pneumonia, mild but persistent for weeks, versus pseudomonas tracheobronchitis # left sided acute sinusitis # left ear serous effusion - no evidence of infection on otoscopic exam today - chest x-ray - clear - sputum culture - Pseudomonas aureginosa - cefepime in hospital changed to oral cipro for 10 day course - afrin bid x 72h for acute sinusitis - would be a good idea to add nasal flonase - I forgot to put this on the discharge meds prior to her leaving - not currently wheezing, continue formulary substitution for Trelegy and as needed albuterol Chronic issues: # HTN - on olmesartan, atenolol - held since hypotensive in ED which rapidly resolved with IV fluids, resumed by discharge # Athrosclerosis and JOSE L stenosis, L CEA - reviewed cardiology note 08/31 - ASA, cholesterol control # HLD - on repatha, zetia. intolerant of statin # PEGGY - noted, doesn't wear CPAP consistently # hypothyroid - cont levothyroxine, TSH normal this month # mood disorder - continue citalopram # osteoporosis - continue primary care follow up. On Ca/D and reclast # GERD - HH repair 2023 I updated her son-in-law Dr. Elias today. Admission HPI Per Admitting Provider 73 y/o with calcific tendonitis discharged three days ago after tendon repair right gluteus minimus. She came in by EMS with severe right leg pain. she does have right hip/gluteus pain however that is not the prominent issue, rather, she has severe right knee pain. Pain does radiate from right hip down anterior thigh and all the way down her foote to her toes. She has some pain in her anterior ankle area. Pain is severe and not controlled by her oral pain medication. This morning unable to get OOB because of pain, even with help from family. 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 BP in 90s on arrival - improved after fluids. Anemia noted with adequate hemoglobin She is also been struggling with a cough that has been going on ever since school let out the first week in September. 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 it has been productive of yellow sputum. She has had chills and subjective fevers. She reports that she has had 2 courses of different antibiotics and courses of steroids. She recently saw her cnc laser operator who changed her inhalers to Trelegy. she does have asthma. She is a former smoker and she did recently have a screening chest CT which was negative for signs of malignancy. I reviewed the prescription database and on 10/04 she filled a Z-Rikki and methylprednisolone. on 10/11 she filled a 5-day course of doxycycline and prednisone 40 mg x 5 days. She says that she finished the prednisone 1 week ago Discharge Exam Last 24h vitals reviewed GEN: up in chair again HEENT: pupils equal, sclerae anicteric, moist MM. L ear - no pain with manipulation of pinna, mastoid process not tender or red, no redness of ear canal, TM is shiny and convex serous effusion behind RESP: normal WOB, cough, lungs clearer today with some basilar crackles and scattered coarse sounds CV: reg no mrg ABD: ND : no maier SKIN: warm and dry, no rash EXT: R knee with effuison, no warmth or erythema NEURO: AOx person, place, and situation. Discharge Plan Discharge Items Patient Disposition: Transfer Inpatient Rehab Fac Reason For Visit: ACUTE KNEE PAIN, AMBULATORY DYSFUNCTION Discharge Diagnosis: Acute crystalline arthritis right knee, recent right gluteal tendon surgery, ambulatory dysfunction, pseudomonas pneumonia and sinusitis Condition on Discharge: Fair Activity: Per Instructions section Weightbearing: Right partial Non-emergency contact: Primary Care Provider and Surgeon Call non-emergency contact if: you have any medication questions and your symptoms worsen Follow-up/Referrals: Phuong Moore MD [Primary Care Provider] - Diony Brito MD [Physician] - [facility] [Non-Staff] - Diet: Regular Addtl Attending Provider Instructions: Recent R gluetus tendon repair - partial weightbearing RLE R knee acute gout or pseudogout flare - responding to colchicine and nsaids. crystal exam and joint aspirate culture still pending Pseudomonas - mild pneumonia or tracheobronchitis, sinusitis - sensitive to cipro -10 day course of cipro -72h course of afrin for left sinusitis / OM Please check chemistry panel in 2-3 days check renal function on colchicine and nsaids Trying to avoid systemic steroids because she had two courses for pulmonary already within past 4 weeks Pending Studies at Discharge: Yes Stand-Alone Forms: My [facility] Skilled Items Patient informed of condition?: Yes DNR: No Discharge Level of Care: Acute rehab Communicable Disease: No Discharge Prognosis: Improving Lines: None Urinary Catheter: No Medications and DC Order Prescriptions: New sennosides [Senokot] 8.6 mg Tablet 8.6 mg PO HS PRN (Reason: constipation) Qty: 0 0RF acetaminophen 325 mg Tablet 650 mg PO Q6H Qty: 0 0RF polyethylene glycol 3350 [Miralax] 17 gram Powder In Packet 17 g PO DAILY PRN (Reason: constipation) Qty: 0 0RF naproxen 250 mg Tablet 250 mg PO BID PRN7 Days Qty: 0 0RF melatonin 3 mg Tablet 3 mg PO HS PRNQty: 0 0RF colchicine [Colcrys] 0.6 mg Tablet 0.6 mg PO BID Qty: 0 0RF oxymetazoline [Nasal [place] (oxymetazoline)] 0.05 % [place],Non-Aerosol 1 spray NA BID 3 Days Qty: 0 0RF ciprofloxacin HCl 500 mg tablet 500 mg PO BID Qty: 20 0RF Continued ezetimibe 10 mg tablet 10 mg PO QAM Qty: 90 3RF telmisartan 20 mg tablet 10 mg PO HS Qty: 45 3RF Rx Instructions: 1/2 tab orally at bedtime; diclofenac sodium 1 % gel 2 g topical QID PRN (Reason: Pain) Qty: 100 2RF Rx Instructions: apply to hip QID PRN citalopram 40 mg tablet 40 mg PO QAM Qty: 90 3RF clotrimazole 1 % cream 1 applic topical BID PRN (Reason: rash) Qty: 30 0RF clobetasol 0.05 % cream 1 applic topical DAILY PRN (Reason: lichen sclerosus) Qty: 60 3RF multivitamin [Daily Multi-Vitamin] Tablet 1 tab PO QAM aspirin [Adult Aspirin Regimen] 81 mg tablet,delayed release (DR/EC) 81 mg PO QAM cholecalciferol (vitamin D3) 125 mcg (5,000 unit) capsule 125 mcg PO QAM mecobalamin (vitamin B12) 1,000 mcg tablet,chewable 1,000 mcg PO QAM azelastine 137 mcg (0.1 %) aerosol,spray 1 spray intranasal BID PRN (Reason: Congestion) Rx Instructions: administer into each nostril albuterol sulfate 2.5 mg /3 mL (0.083 %) solution for nebulization 2.5 mg inhalation Q4H PRN (Reason: sob) montelukast 10 mg tablet 10 mg PO QPM levothyroxine [Euthyrox] 50 mcg tablet 50 mcg PO QAM Qty: 90 3RF ascorbic acid (vitamin C) [Vitamin C] 250 mg Tablet 250 mg PO QAM Culturelle 10 billion cell Capsule 1 cap PO Q2D atenolol 25 mg tablet 12.5 mg PO QAM fluticasone propionate 100 mcg/actuation blister with device 1 inh inhalation QAM Rx Instructions: Per pt report 06/2024 oxycodone 5 mg tablet 5 - 10 mg PO DIRECTED PRN (Reason: pain) Rx Instructions: take 1-2 tabs every 6-8 hours for pain as needed Repatha SureClick 140 mg/mL pen injector 140 mg subcut Q14D Trelegy Ellipta 100-62.5-25 mcg blister with device 1 INHALATION DAILY Changed Slow Fe 137 mg (45 mg iron) Tablet Extended Release 137 mg PO Q2D Qty: 0 0RF Discontinued Trelegy Ellipta 100-62.5-25 mcg blister with device INHALATION Trelegy Ellipta 100-62.5-25 mcg blister with device INHALATION Discharge Orders: Discharge Order (Routine); Ordered 10/23/24 Ordered By: Starla Whittaker/Other Patient Handouts: When to Use Antibiotics Admission Data Admit Date/Time: 10/21/24 14:40 Attending Provider: Starla Aguero Admit Provider: Starla Aguero Primary Care Provider: Phuong Moore Other Providers: [place] Nance; [facility]; Brannon Elias Other Interventions: Discharge Summary Assessment (RN) Last Done: 10/23/24 14:05 Hospital Stay Data Consultations 10/21/24 11:31 ED Decision to Admit Stat Diagnostic Imagining Performed 10/21/24 10:39 US venous doppler LE RT Stat Pending Results Patient Have Any Pending Studies at Discharge: Yes Discharge Instructions Given to Patient (Per Discharging Provider) Recent R gluetus tendon repair - partial weightbearing RLE R knee acute gout or pseudogout flare - responding to colchicine and nsaids. crystal exam and joint aspirate culture still pending Pseudomonas - mild pneumonia or tracheobronchitis, sinusitis - sensitive to cipro -10 day course of cipro -72h course of afrin for left sinusitis / OM Please check chemistry panel in 2-3 days check renal function on colchicine and nsaids Trying to avoid systemic steroids because she had two courses for pulmonary already within past 4 weeks Total Time Total Time Spent Total Time Spent (In Minutes): I personally spent: 45 minutes today on clinical care activities including: reviewing chart notes and vital signs reviewing labs discussion with complex care nurse practitioner examining and counseling the patient counseling the patient's family writing prescriptions, discharge instructions documentation Coding Level of Care Code 31175 INP/OBS DISCH >30 MIN Diagnoses Pseudogout of knee M11.269 Acute postoperative pain of right hip G89.18; M25.551 Anemia D64.9 Hypotension I95.9 Atherosclerosis of aorta I70.0 Primary hypertension I10 Hypertension type: primary hypertension
[2024-10-23] MEDS: OXYMETAZOLINE 0.05% 30 ML BTL SCH (12:57)
[2024-10-23] MEDS: COLCHICINE 0.6 MG TAB PO ONE (12:57)
[2024-10-24] MEDS ORDERED: COLCHICINE 0.6 MG TAB PO SCH (09:00)
== END 2024-10-23 14:36 ==
LOC: SUATTDRO → ED 09:39 → 3W 09:39